=== PATIENT | female | born 1990 | race Caucasian/White ===

== ENCOUNTER 2021-02-11 13:19 | Emergency (ER) | payer BC, SELFPAY ==
[2021-02-11 15:06] VITALS: BP 149/95; PULSE 79; RESP 16; TEMP 36.6; O2SAT 97; BMI 20.5
[2021-02-11 15:14] LABS: UTC Strep Screen (Rapid) Negative (Negative)
--- NOTE | 2021-02-11 15:51 | HMH.EDUTC ---
[facility] [place] Impression: Sinusitis Qualifiers: Sinusitis location: unspecified location Chronicity: unspecified Qualified Code(s): J32.9 - Chronic sinusitis, unspecified Disposition: Home, Self-Care Condition on Discharge: Good Instructions: Sinusitis, DI for Sinusitis, Azithromycin Additional Instructions: *Monitor Temp, Over the counter Motrin or Tylenol as directed/as needed Tylenol every 4 hours and Motrin every 6 hours (as long as your family doctor has told you that you can take it) for fever or pain. and straight to ER if unable to lower temp less than 101.0 after medication given *Warm salt water gargles may help to soothe the throat *Throat Lozenges *Warm fluids like tea with honey may help to soothe the throat *Sleep elevated *Humidifier/Vaporizer Take medication as prescribed Your throat swab was sent for culture. Those results are typically sent to your primary care. Be sure to follow up in 2-3 days with your family doctor/primary care physician if no improvement so they can review those result and treat if necessary. If you don?t have a primary care doctor, I recommend you get one but in the mean time, you will have to return to a walk in clinic Follow up IMMEDIATELY for new or worsening symptoms or no Noticeable improvement over the next 48-72 hours. 911 for difficulty breathing or swallowing Prescriptions: Fluticasone Propionate [Flonase 50mcg nasal spray 16gm] 1 spr NS DAILY #1 each Transmission Status: Pending to [facility] # methylPREDNISolone [Medrol 4mg tab] 4 mg PO DIRECTED #21 tab Transmission Status: Pending to [facility] # Azithromycin [Z-Lele 250mg Tab] 250 mg PO DIRECTED #6 tab Transmission Status: Pending to [facility] # Referrals: Lina Galvan [Primary Care Provider] - As needed Time of Disposition: 16:04 Medical Decision Making - Shawn Inquiry Pt receiving controlled substance: No Shawn was queried for this patient: No Vital Signs: 02/11/21 15:06 Temperature 97.9 F Temperature Source Oral Pulse Rate [Right Radial] 79 Respiratory Rate 16 Blood Pressure [Right Arm] 149/95 H Blood Pressure Mean [Right Arm] 113 Blood Pressure Source [Right Arm] Automatic Cuff Blood Pressure Position [Right Arm] Sitting 02 Sat by Pulse Oximetry 97 Oxygen Delivery Method Room Air - Lab Data Lab Results 02/11/21 15:06: Strep Scn Rapid Clinic Negative Orders (Tests/Meds): ORDERS Category Date Time Status Strep Screen Confirmation Stat Micro 02/11/21 15:06 Received Medical Decision Narrative: Patient denies states that she is currently coming off her period [facility] [place] - General Stated complaint: sore throat, congestion Time Seen by Provider: 02/11/21 15:51 Mode of Arrival: Ambulatory Source of Information: Patient Description of Symptoms (Recalled from Triage Doc. by RN): cough,sinus congestion,sore throat HEENT Symptoms (Recalled from RN notes): Yes Resp Symptoms (Recalled from RN notes): Yes Skin Symptoms (Recalled from RN notes): No MS Symptoms (Recalled from RN notes): No Functional Status (Recalled from RN notes): . - History of Present Illness Provider Complaint: Patient states that she has been having sinus pain and pressure for well over a week States that she also has had cough and sore throat States that she has been taking over the counter Medication but it hasnt helped much so today she came in when she was still having the sinus pressure - Related Data Previous Rx's Medication Instructions Recorded Azithromycin [Z-Lele 250mg Tab] 250 mg PO DIRECTED #6 tab 02/11/21 Fluticasone Propionate [Flonase 1 spr NS DAILY #1 each 02/11/21 50mcg nasal spray 16gm] methylPREDNISolone [Medrol 4mg 4 mg PO DIRECTED #21 tab 02/11/21 tab] Allergies Allergy/AdvReac Type Severity Reaction Status Date / Time Penicillins Allergy Verified 02/11/21 15:10 - Worke
[2021-02-11 16:39] VITALS: BP 151/99; PULSE 78; RESP 19; TEMP 36.8; O2SAT 99
== END 2021-02-11 16:43 | disposition home or self-care (01) ==
PROVIDERS: Emergency Provider Nurse Practitioner; PCP Nurse Practitioner Family
DX: J32.9 Chronic sinusitis, unspecified (principal)
CPT/HCPCS: 87880; 99202; G0463

== ENCOUNTER 2021-08-28 08:00 | Emergency (ER) | payer BC, SELFPAY ==
[2021-08-28 08:09] VITALS: BP 135/96; PULSE 84; RESP 17; TEMP 36.9; O2SAT 98; BMI 22.8
[2021-08-28 08:23] LABS: Strep Scrn Group A (Rapid) Negative (Negative)
[2021-08-28 08:26] LABS: UTC Influenza A Antigen Negative (Negative); UTC Influenza B Antigen Negative (Negative)
--- NOTE | 2021-08-28 08:28 | HMH.EDUTC ---
[facility] [place]position Clinical Impression: Gastroenteritis Diarrhea Qualifiers: Diarrhea type: unspecified type Qualified Code(s): R19.7 - Diarrhea, unspecified Disposition: Home, Self-Care Condition on Discharge: Good Instructions: Viral Gastroenteritis, DI for Viral Gastroenteritis -- Adult, Ondansetron, Ondansetron Injection Additional Instructions: Drink plenty of fluids. Take tylenol for pain or fever. Take the medications as directed. Follow up with your regular doctor. GO TO THE ER FOR ANY WORSENING SYMPTOMS Return a stool sample to the laboratory here if your diarrhea continues until tomorrow. Prescriptions: Ondansetron [Zofran 4mg ODT] 4 mg PO Q8HP PRN #20 tab PRN Reason: Nausea Transmission Status: Received by [facility] #[id number] Referrals: Lina Galvan [Primary Care Provider] - Forms: Work/School Release Time of Disposition: 09:49 Medical Decision Making - Medical Records Medical records reviewed: No: I reviewed the patient's medical records. - Shawn Inquiry Pt receiving controlled substance: No Vital Signs: 08/28/21 08:09 08/28/21 10:43 Temperature 98.5 F 98.5 F Temperature Source Oral Pulse Rate 84 Pulse Rate [Left Radial] 84 Respiratory Rate 17 17 Blood Pressure 135/96 H Blood Pressure [Right Arm] 135/96 H Blood Pressure Mean [Right Arm] 109 02 Sat by Pulse Oximetry 98 - Lab Data Lab results reviewed: Yes: I reviewed the patient's lab results. Lab Results 08/28/21 08:10: Group A Strep Rapid Negative 08/28/21 08:13: Influenza Type A Ag Negative, Influenza Type B Ag Negative 08/28/21 08:39: WBC 5.4, RBC 4.60, Hgb 10.0 L, Hct 30.5 L, MCV 66.3 L, MCH 21.8 L, MCHC 32.9, RDW 18.1 H, Plt Count 178, MPV 7.1 L, Neut % (Auto) 67.7, Lymph % (Auto) 20.2, Garvin % (Auto) 6.9, Eos % (Auto) 4.1, Baso % (Auto) 1.1, Neut # (Auto) 3.6, Lymph # (Auto) 1.1, Garvin # (Auto) 0.4, Eos # (Auto) 0.2, Baso # (Auto) 0.1 08/28/21 08:39: Sodium 136, Potassium 3.6, Chloride 105, Carbon Dioxide 27, Anion Gap 7.6, BUN 10, Creatinine 0.60, Estimated Creat Clear 115, Estimated GFR 117, Est GFR ( Amer) 142, Glucose 103 H, Calcium 8.5, Total Bilirubin 1.2, AST 72 H, ALT 17, Alkaline Phosphatase 46, Total Protein 6.3, Albumin 3.9, Globulin 2.4, Albumin/Globulin Ratio 1.6, Amylase 69, Lipase 58 Result diagrams: 08/28/21 08:39 08/28/21 08:39 Orders (Tests/Meds): ED MEDICATIONS Discontinued Medications Generic Name Dose Route Start Last Admin Trade Name Freq PRN Reason Stop Dose Admin Sodium Chloride 1,000 mls @ 999 mls/hr 08/28/21 09:45 08/28/21 09:40 Sod Chlor 0.9% 1000ml Bag IV 08/28/21 10:45 999 mls/hr .Q1H1M TAYLOR Administration Ondansetron HCl 4 mg 08/28/21 09:34 08/28/21 09:40 Ondansetron 4mg/2ml Vial IV 08/28/21 09:35 4 mg ONCE ONE Administration ORDERS Category Date Time Status Strep Screen Confirmation Stat Micro 08/28/21 08:10 Received Medical Decision Narrative: She refused a covid-19 swab. [facility] [place] HPI - General Stated complaint: stomach ache, vomiting, diarrhea since 08/23 Time Seen by Provider: 08/28/21 08:28 Source of Information: Patient Description of Symptoms (Recalled from Triage Doc. by RN): patient comes in today with complaints of vomitting and diarrhea that began 08/24/21. HEENT Symptoms (Recalled from RN notes): No Resp Symptoms (Recalled from RN notes): No Skin Symptoms (Recalled from RN notes): No MS Symptoms (Recalled from RN notes): No Functional Status (Recalled from RN notes): wnl - History of Present Illness Provider Complaint: She states that for the past 5 days she has had n/v/d and abdominal cramping. She denies any cough or congestion. She has had chilling, but no documented fever. She denies significant sore throat. - Related Data Previous Rx's Medication Instructions Recorded Azithromycin [Z-Lele 250mg Tab] 250 mg PO DIRECTED #6 tab 02/11/21 Fluticasone Propionate [Flonase 1 spr
[2021-08-28 09:22] LABS: Basophils # 0.1 K/mm3 (0-0.2); Basophils % 1.1 % (0.1-2.0); Eosinophils # 0.2 K/mm3 (0.0-0.4); Eosinophils % 4.1 % (0.1-12.0); Hematocrit 30.5 % (37.0-47.0); Lymphocytes # 1.1 K/mm3 (0.7-4.5); Lymphocytes % 20.2 % (10-50); Mean Corpuscular HGB Conc 32.9 g/dL (31.8-35.4); Mean Corpuscular Hemoglobin 21.8 pg (27.0-31.2); Mean Corpuscular Volume 66.3 fl (81-99); Mean Platelet Volume 7.1 fl (7.4-10.4); Monocytes # 0.4 K/mm3 (0.1-1.0); Monocytes % 6.9 % (1.7-9.3); Neutrophils # 3.6 K/mm3 (1.8-7.8); Neutrophils % 67.7 % (37.0-80.0); Platelet Count 178 K/mm3 (142-424); Red Cell Distribution Width 18.1 % (11.5-17.5); White Blood Count 5.4 K/mm3 (4.8-10.8)
[2021-08-28 09:24] LABS: Chloride 105 mmol/L (98-107); Potassium 3.6 mmoL/L (3.5-5.1); Sodium 136 mmol/L (136-145)
[2021-08-28 09:26] LABS: Amylase 69 U/L (30-110); Blood Urea Nitrogen 10 mg/dl (7-17); Creatinine Clearance Estimated 115 mL/min (50-200); Estimated Glomerular Filt Rate 117 ml/min (>60); GFR (African American) 142 ML/MIN (>60)
[2021-08-28 09:27] LABS: Alanine Aminotransferase 17 U/L (12-78); Albumin Level 3.9 g/dl (3.5-5.0); Albumin/Globulin Ratio 1.6 (1.1-1.8); Alkaline Phosphatase 46 U/L (38-126); Anion Gap 7.6 mEq/L (5-15); Aspartate Amino Transferase 72 U/L (14-36); Bilirubin,Total 1.2 mg/dl (0.2-1.3); Calcium 8.5 mg/dl (8.4-10.2); Carbon Dioxide 27 mmol/L (22.0-30.0); Globulin 2.4 g/dL (1.3-3.2); Glucose 103 mg/dl (74-100); Lipase 58 U/L (23-300); Total Protein,Serum 6.3 g/dl (6.3-8.2)
[2021-08-28 10:43] VITALS: BP 135/96; PULSE 84; RESP 17; TEMP 36.9
== END 2021-08-28 10:49 | disposition home or self-care (01) ==
PROVIDERS: Emergency Provider Nurse Practitioner Family; PCP Nurse Practitioner Family
DX: K52.9 Noninfective gastroenteritis and colitis, unspecified (principal)
CPT/HCPCS: 80053; 82150; 83690; 85025; 87430; 87804; 96374; 99212; G0463; J2405

== ENCOUNTER 2024-10-19 13:34 | Outpatient (CLI) | payer BC, SELFPAY ==
--- OUTSIDE RECORDS SUMMARY | 2024-10-19 13:36 | XMS_ITS | Clinical Summary ---
Author Organization [facility] Address [address] [place] [address] Care Team Providers Care Earth Science Teacher Name Role Phone BruceMaricruz Lydia PUENTE Primary Care Provider [phone] Allergies Active Allergy Reactions Criticality Noted Date Comments Penicillins Other - please docum ent in the comment field,Unknown - Patient states they do not know rxn details Low 11/04/2011 Penicillins Medications * This document contains information received from the source organization and may not represent a complete record from that organization. cetirizine (ZyrTEC) 10 MG tabletIndication s:Allergic rhinitis, unspecified seasonality, unspecified trigger Take 1 tablet (10 mg total) by mouth 1 (one) time each day. 90 tablet 3 05/20/2022 Active Active Problems Problem Noted Date Diagnosed Date Encounter for gynecological examination without abnormal finding 05/22/2021 Assessment & Plan (05/22/2021 1:27 PM EST): - pap today - normal exam - declines contraception - RTC as needed Encounter for dental examination 02/19/2021 Cervical lymphadenopathy 05/21/2018 Dysmenorrhea 07/14/2017 Low back pain 03/25/2016 Low grade squamous intraepit helial lesion on cytologic smear of cervix (LGSIL) 06/05/2014 Allergic rhinitis 11/23/2013 Psoriasis 05/24/2013 Headache 04/15/2013 Encounters * This document contains information received from the source organization and may not represent a complete record from that organization. Date Type Department Care Team Description 08/05/2024 Results Follow-Up [facility] [address] [place] [address] Maricruz Barrera APRN 08/05/2024 Travel 08/05/2024 Orders Only [facility] [address] [place] [address] Elzbieta Werner LPN Encounter for Titer Results (Primary Dx) 07/27/2024 8:00 AM EDT Office Visit [facility] [address] [place] [address] Maricruz Barrera, KILN [employer]W TENDER Routine general medical examination at a health care facility (Primary Dx); Screening-pulmonary TB; History of anemia; Menorrhagia with regular cycle; Vaccine counseling 07/27/2024 Results Follow-Up [facility] [address] [place] [address] Maricruz Barrera APRN 07/27/2024 Travel 07/26/2024 Travel from Last 3 Months Immunizations Immunization Administration Dates Next Due HPV, Quadrivalent 03/23/2009 Hep A, Unspecified 01/30/2018 Hep B, adult 03/20/2003,10/13/2002,09/15/2002 Influenza, Unspecified 01/03/2020,2018,01/15/2018,2016,01/06/2016,01/02/2015,01/10/2014,1 ,01/08/2012 Influenza, injectable, quadr ivalent, preservative free 12/26/2022,01/08/2022,02/20/2021 Influenza, seasonal, injecta ble, preservative free 02/25/2024 MMR 09/15/2002,01/23/1992 PPD Skin Test (TB Skin Test) 01/10/2014,10/06/19 13 Tdap 07/27/2024,10/08/2012 Family History Medical History Relation Name Comments Allergy (severe) Mother Asthma Mother Hypertension Mother Conversions - Other Other 1 malignan t neoplasm of ovary Ovarian cancer Other 2 Cardiac disorder Sister Relation Name Status Comments Mother Other 1 Other 2 Sister Social History Tobacco Use Types Packs/Day Years Used Date Smoking Tobacco: Never Tobacco Cessation:Counseling Given: Not Answered Alcohol Use Standard Drinks/Week Comments Yes 0 (1 standard drink = 0.6 oz pure alcohol) Alcoholic Drinks/day: Occasional alcohol use Humiliation, Afraid, Rape, and Kick questionnair e Answer Date Recorded Within the last year, have y ou been afraid of your partner or ex-partner? No 07/26/2024 Within the last year, have y ou been humiliated or emotionally abused in other ways by your partner or ex-partner? No Within the last year, have y ou been kicked, hit, slapped, or otherwise physically hurt by your partner or ex-partner? No 07/26/2024 Within the last year, have y ou been raped or forced to have any kind of sexual activity by your partner or ex-partner? No 07/26/2024 PHQ-2 Answer Date Recorded Patient Health Questionnaire-2 Score 0 07/27/2024 Hunger Vital Sign Answer Date Recorded Within the past 12 months, y ou worried that your food would run out before you got the money to buy more. Never true 07/27/19 25 Within the past 12 months, t he food you bought just didn't last and you didn't have money to get more. Never true 07/26/2024 PRAPARE - Transportation Answer Date Re corded In the past 12 months, has l ack of transportation kept you from medical appointments or from getting medications? No 08/2024 In the past 12 months, has l ack of transportation kept you from meetings, work, or from getting things needed for daily living? No 07/26/2024 PHQ-9 Answer Date Recorded Patient Health Questionnaire-9 Score 0 07/27/2024 Housing Stability Vital Sign Answer Christopher e Recorded In the last 12 months, was t here a time when you were not able to pay the mortgage or rent on time? No 07/26/2024 Number of Times Moved in the Last Year Not on fi le 07/26/2024 At any time in the past 12 m [facility], were you homeless or living in a fci (including now)? No 07/26/2024 Utilities Answer Date Recorded In the past 12 months has th e [employer], gas, oil, or water company threatened to shut off services in your home? No 07/26/2024 PHQ-2A Answer Date Recorded Patient Health Questionnaire-2 Score 0 05/20/2022 Comments No Sex and Gender Information Value Date Recorded Sex Assigned at Female 01/23/2021 11:25 AM EDT Legal Sex Female 8:31 PM EDT Gender Identity Female 01/23/2021 11:25 AM EDT Sexual Orientation Not on file Last Filed Vital Signs Vital Sign Reading Time Taken Comments Blood Pressure 116/70 07/27/2024 7:55 AM EDT Pulse 77 07/27/2024 7:55 AM EDT Temperature - - Respiratory Rate 18 07/27/2024 7:55 AM EDT Oxygen Saturation 98% 07/27/2024 7:55 AM EDT Inhaled Oxygen Concentration - - Weight 59.4 kg (130 lb 15.3 oz) 07/27/2024 7:55 AM EDT Height 154.9 cm (5' 1 ) 07/27/2024 7:55 AM EDT Body Mass Index 24.74 07/27/2024 7:55 AM EDT Plan of Treatment Upcoming Encounters Date Type Department Care Team (Late st Contact Info) Description 11/02/2024 1:40 PM EDT Office Visit [facility] [address] [place] [address] Maricruz Barrera, CINDI [address] [place] [address] 01/03/2025 9:00 AM EDT Office Visit [facility] [address] [place] [address] [address] [place] [id number] Varinder Youssef [facility] [place] [address] Health Maintenance Due Date Last Done Comments [facility]-HIV Screening 1990 [facility]-Hepatitis C Screening 1990 [facility]-Infant/Child/Adol SDOH Screenings 1990 [facility]-Varicella Vaccines (1 of 2 - 13+ 2-dose series) 10/15/2003 HPV Vaccines (2 - 3-dose series) 04/20/2009 03/23/2009 [id number] Vaccine (3 - season) 2023 12/07/2020, 11/09/2020 [facility]-Pap Smear 05/22/2024 05/22/2021, 07/22, 06/27/2015, Additional history exists [facility]-Influenza Vaccine (#1) 11/21/202402/24, 12/26/2022, 01/08/2022, Additional history exists Dental Oral Exam 12/21/2024 06/20/2024, , 06/15/2023, Additional history exists Dental Prophylaxis 12/21/2024 06/20/2024, 0 12/21/2023, 06/15/2023, Additional history exists Dental X-Ray: Bitewings 12/21/2024 12/21/19 24, 12/01/2022, 11/21/2021, Additional history exists [facility]- SDOH Screenings 01/26/2025 [facility]-Adult SDOH Screenings 01/26/2025 07/26/2024 [facility]-Depression Screening 07/27/2025 07/27/2024, 05/0 09/2024 Dental X-Ray: Full Mouth 12/02/2025 12/01/2022 [facility]-Cervical Cancer Screening 05/22/2026 [facility]-HPV/Cotest 05/22/2026 05/22/2021, 07/22, 06/27/2015, Additional history exists [facility]-DTaP,Tdap,and Td Vaccines (3 - Td or Tdap) 07/27/2034 07/27/2024, 10/08/2012 [facility]-Zoster Vaccines (1 of 2) 2040 [facility]-Hepatitis B Vaccines Completed 003, 10/13/2002, 09/15/2002 [facility]-Hepatitis A Vaccines Aged Out 01/30/2018 No longer eligible based on patient's age to complete this topic [facility]-HIB Vaccines Aged Out No longer e ligible based on patient's age to complete this topic [facility]-IPV Vaccines Aged Out No longer e ligible based on patient's age to complete this topic [facility]-Pneumococcal Vaccine: Pediatrics (0 to 5 Years) and At-Risk Patients (6 to 49 Years) Aged Out No longer eligible based on patient's age to complete this topic [facility]-Rotavirus Vaccines Aged Out No lo nger eligible based on patient's age to complete this topic Procedures Procedure Name Priority Date/Time Associated Diagnosis Comments VARICELLA ZOSTER ANTIBODY IGG Routine 08/05/2024 9:24 AM EDT Encounter for Titer Results CBC W/O DIFFERENTIAL Routine 07/27/2024 8:34 AM EDT [facility] FERRITIN, SERUM Routine 07/27/2024 8:34 AM EDT History of anemia Menorrhagia with regular cycle IRON & TOTAL IRON BINDING CAPACITY, PLASMA (INCLUDES TRANSFERRIN) Routine 07/27/2024 8:34 AM EDT History of anemia Menorrhagia with regular cycle TSH Routine 07/27/2024 8:34 AM EDT Routine [facility] LIPID PROFILE, PLASMA Routine 07/27/2024 8:34 AM EDT Routine general medical examination at [facility] HEMOGLOBIN A1C Routine 07/27/2024 8:34 AM EDT Routine general medical [facility] COMPREHENSIVE METABOLIC PANEL, PLASMA Routine 07/27/2024 8:34 AM EDT Routine [facility] QUANTIFERON TB GOLD PLUS Routine 07/27/2024 8:34 AM EDT Screening-pulmonary TB PROPHYLAXIS - ADULT Routine 06/20/2024 9 :00 AM EDT Encounter for dental examination PERIODIC ORAL EVALUATION - ESTABLISHED PATIENT Routine 06/20/2024 9:00 AM EDT Encounter for dental examination BITEWINGS - 4 RADIOGRAPHIC IMAGES Routine 12/21/2023 9:00 AM EDT Encounter for dental examination PANORAMIC RADIOGRAPHIC IMAGE Routine 12/01/2022 9:00 AM EDT Encounter for dental examination PAP TEST - CYTOLOGY Routine 05/22/2021 1 :18 PM EST Encounter for gynecological examination without abnormal finding from Last 3 Months or Most Recently Relevant to Health Maintenance Results * (ABNORMAL) Varicella zoster antibody, IgG (08/05/2024 9:24 AM EDT) Pathologist [facility] Varicella Zoster Antibody IgG Positive(A ) Negative 08/05/2024 12:26 PM EDT [facility] Comment: Varicella-zoster IgG Result Interpretation: Negative: No IgG antibody specific to the varicella-zoster virus detected. Patient is presumed not to have had a previous exposure to varicella-zoster through infection or vaccination. Equivocal: Serologic status cannot be determined. Repeat testing in 10-14 days may be helpful. Positive: IgG antibody specific to varicella-zoster detected. This may indicate the patient was exposed to varicella-zoster through infection or vaccination. Blood Venous blood specimen / Unknown Venipuncture / Unknown 08/05/2024 9:24 AM EDT 08/05/2024 9:24 AM EDT Maricruz Barrera APRN LAB BLOOD ORDERABLES Final Resu lt [facility] [address] [place] [address] * Iron & Total Iron Binding Capacity, Plasma (Includes Transferrin) (07/27/2024 8:34 AM EDT) Pathologist [facility] Iron, Plasma 64 30 - 160 ug/dL 07/27/2024 1:54 PM EDT [facility] Transferrin, Plasma 229 200 - 360 mg/dL 07/27/2024 1:54 PM EDT [facility] Total Iron Binding Capacity, Plasma 286 240 - 450 ug/mL 07/27/2024 1:54 PM EDT [facility] Transferrin Saturation 22 14 - 50 % 07/27/2024 1:54 PM EDT [facility] Blood Venous blood specimen / Unknown Venipuncture / Unknown 07/27/2024 8:34 AM EDT 07/27/2024 8:35 AM EDT Maricruz Barrera APRN LAB BLOOD ORDERABLES Final Resu lt Performing Organization Address [facility]/ZIP Co de Phone Number [facility] [address] [place] [address] * Quantiferon TB Gold (07/27/2024 8:34 AM EDT) [facility] Quantiferon TB Gold Plus Result Negative Negative 07/28/2024 5:12 PM EDT [facility] TB Nill Value 0.0388 IU/mL 07/28/2024 5:12 PM EDT [facility] TB Antigen 1 0.0333 IU/mL 07/28/2024 5:12 PM EDT [facility] TB Antigen 2 0.019 IU/mL 07/28/2024 5:12 PM EDT [facility] TB Mitogen 5.8212 IU/mL 07/28/2024 5:12 PM EDT [facility] Blood Venous blood specimen / Unknown Venipuncture / Unknown 07/27/2024 8:34 AM EDT 07/27/2024 8:35 AM EDT Narrative [facility] - 07/28/2024 5:12 PM EDT Responses to the Mitogen positive control and occasionally to TB antigen can be above the assay range. For calculation purposes: IFN-gamma values > 10 IU/mL are handled as 10 IU/mL. us Maricruz Barrera APRN LAB BLOOD ORDERABLES Final Resu Performing Organization Address [facility] Co de Phone Number [facility] [address] [place] [address] * (ABNORMAL) CBC W/O Differential (07/27/2024 8:34 AM EDT) [facility] WBC Count 7.16 3.70 - 10.30 10*3/uL LAB HEMATOLOGY METHOD 07/27/2024 1:45 PM EDT [facility] RBC Count 5.37(H) 3.90 - 5.20 10*6/uL LAB HEMATOLOGY METHOD 07/27/2024 1:45 PM EDT [facility] HGB 10.8(L) 11.2 - 15.7 g/dL LAB HEMATOLOGY METHOD 07/27/2024 1:45 PM EDT [facility] HCT 36.1 34.0 - 45.0 % LAB HEMATOLOGY METHOD 07/27/2024 1:45 PM EDT [facility] Platelet Count 254 155 - 369 10*3/uL LAB HEMATOLOGY METHOD 07/27/2024 1:45 PM EDT [facility] MCV 67(L) 79 - 98 fL LAB HEMATOLOGY METHOD 07/27/2024 1:45 PM EDT [facility] MCH 20.1(L) 26.0 - 32.0 pg LAB HEMATOLOGY METHOD 07/27/2024 1:45 PM EDT [facility] MCHC 29.9(L) 30.7 - 35.5 g/dL LAB HEMATOLOGY METHOD 07/27/2024 1:45 PM EDT [facility] RDW 16.5(H) 11.5 - 14.5 % LAB HEMATOLOGY METHOD 07/27/2024 1:45 PM EDT [facility] MPV LAB HEMATOLOGY METHOD 07/27/2024 1:45 PM EDT [facility] Comment:Not Measured nRBC 0.0 <=0.0 per 100 WBCs LAB HEMATOLOGY METHOD 07/27/2024 1:45 PM EDT [facility] Blood Venous blood specimen / Unknown Venipuncture / Unknown 07/27/2024 8:34 AM EDT 07/27/2024 8:35 AM EDT us Maricruz Barrera APRN LAB BLOOD ORDERABLES Final Resu lt [facility] [address] [place] [address] * Thyroid Stimulating Hormone, Plasma (07/27/2024 8:34 AM EDT) Thyroid Stimulating Hormone, Plasma 1.47 0.40 - 4.20 uIU/mL 07/27/2024 1:54 PM EDT [facility] Blood Venous blood specimen / Unknown Venipuncture / Unknown 07/27/2024 8:34 AM EDT 07/27/2024 8:35 AM EDT Narrative [facility] - 07/27/2024 1:54 PM EDT Trimester Specific Ranges TSH ( IU/mL) 1st Trimester 0.1 - 3.0 2nd Trimester 0.19 - 4.06 3rd Trimester 0.3 - 3.7 Result [facility] Maricruz Barrera KILN [employer]URE [employer]W TENDER LAB BLOOD ORDERABLES Final Resu lt Performing Organization Address City/[facility]/ZIP Co de Phone Number [facility] [address] [place] [address] * Hemoglobin A1c (07/27/2024 8:34 AM EDT) Hemoglobin A1c 4.5 <5.7 % 07/27/2024 2:31 PM EDT [facility] Blood Venous blood specimen / Unknown Venipuncture / Unknown 07/27/2024 8:34 AM EDT 07/27/2024 8:35 AM EDT Narrative [facility] - 07/27/2024 2:31 PM EDT HA1C Interpretive Data: Diagnosis of Diabetes: Diabetic > or = 6.5% Pre-diabetic 5.7 to 6.4% Non-diabetic < or = 5.6% Glycemic Targets for Type I and Type II Diabetics: Non- Adults <7.0% Adults <6.0% Children and Adolescents <7.5% Source: [place] [employer]. Standards of medical care in diabetes,2017. Diabetes Care.2017:40 (suppl 1):S1-S135. Result [facility] Maricruz Barrera KIL[employer]ER LAB BLOOD ORDERABLES Final Resu lt Performing Organization Address City/[facility] Co de Phone Number [facility] [address] [place] [address] * (ABNORMAL) Ferritin, Serum (07/27/2024 8:34 AM EDT) Ferritin, Serum 204(H) 13 - 150 ng/mL 07/27/2024 1:59 PM EDT [facility] Blood Venous blood specimen / Unknown Venipuncture / Unknown 07/27/2024 8:34 AM EDT 07/27/2024 8:35 AM EDT Maricruz Lydia [place] [employer] LAB BLOOD ORDERABLES Final Resu lt [facility] [address] [place] [id number] * (ABNORMAL) Lipid Profile, Plasma (07/27/2024 8:34 AM EDT) Cholesterol, Plasma 139 <200 mg/dL 07/27/2024 1:54 PM EDT [facility] Comment: Cholesterol Reference Range (age >17 years): Desirable <200 mg/dL Borderline 200 to 239 mg/dL Undesirable >239 mg/dL HDL 49(L) >=50 mg/dL 07/27/2024 1:54 PM EDT [facility] Comment: HDL Cholesterol Reference Ranges (age >17 years): Female, acceptable > or = 50 mg/dL Male, acceptable > or = 40 mg/dL Triglycerides, Plasma 75 <150 mg/dL 07/27/2024 1:54 PM EDT [facility] Comment: Triglyceride Reference Range (age >17 years): Desirable: <150 mg/dL Borderline high: 150 to 199 mg/dL High: 200 to 499 mg/dL Very high: >499 mg/dL Increased risk of pancreatitis: >1000 mg/dL Cholesterol/HDL Ratio 3 07/27/2024 1:54 PM EDT [facility] LDL, Calculated 75 <100 mg/dL 1:54 PM EDT [facility] Comment: LDL Cholesterol Reference Range (age >17 years): Optimal: <100 mg/dL Near or above optimal: 100 - 129 mg/dL Borderline high: 130 - 159 mg/dL High: 160 - 189 mg/dL Very high: >189 mg/dL LDL Cholesterol Reference Range (age <18 years): Desirable: <110 mg/dL Borderline: 110 - 129 mg/dL Undesirable: >130 mg/dL LDL Cholesterol is calculated using the Lynn/NIH equation. Fasting greater than or equal to 12 hours? Yes 07/27/2024 1:54 PM EDT [facility] Blood Venous blood specimen / Unknown Venipuncture / Unknown 07/27/2024 8:34 AM EDT 07/27/2024 8:35 AM EDT us Maricruz Barrera APRN LAB BLOOD ORDERABLES Final Resu lt [facility] [address] [place] [address] * Comprehensive Metabolic Panel, Plasma (07/27/2024 8:34 AM EDT) Glucose, Plasma 95 74 - 99 mg/dL 07/27/2024 1:54 PM EDT [facility] BUN, Plasma 18 7 - 21 mg/dL 07/27/2024 1:54 PM EDT [facility] Creatinine, Plasma 0.70 0.60 - 1.10 mg/dL 07/27/2024 1:54 PM EDT [facility] BUN/Creatinine Ratio 26 07/27/2024 1:54 PM EDT [facility] Sodium, Plasma 140 136 - 145 mmol/L 07/27/2024 1:54 PM EDT [facility] Potassium, Plasma 4.3 3.6 - 4.9 mmol/L 07/27/2024 1:54 PM EDT [facility] Chloride, Plasma 107 97 - 107 mmol/L 07/27/2024 1:54 PM EDT [facility] CO2, Plasma 25 22 - 29 mmol/L 07/27/2024 1:54 PM EDT [facility] Anion Gap 8 6 - 16 mmol/L 07/27/2024 1:54 PM EDT [facility] Total Calcium, Plasma 9.1 8.9 - 10.2 mg/dL 07/27/2024 1:54 PM EDT [facility] Total Protein 6.8 6.3 - 7.9 g/dL 07/27/2024 1:54 PM EDT [facility] Albumin, Plasma 4.4 3.5 - 5.2 g/dL 07/27/2024 1:54 PM EDT [facility] AST, Plasma 24 10 - 35 U/L 07/27/2024 1:54 PM EDT [facility] ALT, Plasma 16 10 - 35 U/L 07/27/2024 1:54 PM EDT [facility] Alkaline Phosphatase, Plasma 56 35 - 104 U/L 07/27/2024 1:54 PM EDT [facility] Total Bilirubin, Plasma 0.8 0.2 - 1.1 mg/dL 07/27/2024 1:54 PM EDT [facility] eGFRcr 117.3 mL/min/1.7 3m*2 07/27/2024 1:54 PM EDT [facility] Comment:Reported eGFRcr in m L/min/1.73m2 is based the CKD-EPI 2020 equation that does not use a race coefficient. Blood Venous blood specimen / Unknown Venipuncture / Unknown 07/27/2024 8:34 AM EDT 07/27/2024 8:35 AM EDT us Maricruz Barrera APRN LAB BLOOD ORDERABLES Final Resu lt [facility] [address] [place] [address] * Pap Smear (05/22/2021 1:18 PM EST) Case Report Cytology Case: [id number] Authorizing Provider: Leydi Jimenez MD Collected: 05/22/2021 1318 Ordering Location: Obstetrics & Gynecology Received: 05/23/2021 0839 First Screen: ALEJO Ceballos Rescreen: ALEJO Gaming Specimen: ThinPrep Pap Test, Liquid-Based Cervical/Vaginal, CERVICAL/VAGINAL 05/29/2021 12:20 PM EST [facility] Interpretation NEGATIVE FOR INTRAEPITHELIAL LESION OR MALIGNANCY 05/29/2021 12:20 PM EST [facility] at 1220 EST Specimen Adequacy Satisfactory for evaluation; endocervical/arenas sformation zone component present. Slide scanned and imaged by [employer] System with manual review of all selected neri. 05/29/2021 12:20 PM EST [facility] Cervical cytology is a screening test primarily for squamous cancers and precursors and has associated false negative and positive results. New technologies such as liquid based sampling may decrease but will not eliminate all false negative results. Regular screening and follow-up of unexplained clinical signs and symptoms are recommended to minimize false negative results. Please see the ASCCP website (www.asccp.org)fo r followup recommendations. If HPV testing was requested, correlation with the results is suggested (please call Microbiology at [phone] for results). 05/29/2021 12:20 PM EST [facility] Menstrual Status Cyclic 05/30/19 12:20 PM EST [facility] History of Hysterectomy Not Applicable 05/29/2021 12:20 PM EST [facility] Contraceptive History Not Applicable 05/29/2021 12:20 PM EST [facility] Screening Type Routine Screen 2021 12:20 PM EST [facility] High Risk? No 05/29/2021 12:20 PM EST [facility] HPV Testing Requested? Request HPV Testing Regardless of Pap Test Findings 05/29/2021 12:20 PM EST [facility] Previous Cancer History No 05/29/2021 12:20 PM EST [facility] Clinical Information Z01.419 - Encounter for gynecological examination without abnormal finding [ICD-10-CM] 05/29/2021 12:20 PM EST [facility] Last Menstrual Period 04/24/2021 05/29/2021 12:20 PM EST [facility] Swab Vaginal and cervical cytologic material / Unknown Non-blood Collection / Unknown 05/22/2021 1:18 PM EST 05/23/2021 8:39 AM EST Leydi Jimenez MD LAB CYTOLOGY ORDERABLES Final Result [facility] [address] [place] [address] from Last 3 Months or Most Recently Relevant to Health Maintenance Insurance [facility] Care Teams Earth Science Teacher Relationship Specialty Start Date End Date Maricruz Barrera APRN [address] [place] [address] PCP - General Family Medicine 05/20/22
--- OUTSIDE RECORDS SUMMARY | 2024-10-19 13:36 | XMS_ITS | Encounter Summary ---
Author Organization [facility] Address [address] [place] [address] Care Team Providers Care Internet Marketing Specialist Name Role Phone Maricruz Barrera APRN Primary Care Provider [phone] Encounter Details Date Type Department Care Team (Late st Contact Info) Description 07/27/2024 Results Follow-Up [facility] [address] [place] [address] Maricruz Barrera APRN [address] [place] [address] Social History Tobacco Use Types Packs/Day Years Used Date Smoking Tobacco: Never Alcohol Use Standard Drinks/Week Comments Yes 0 [...] money to buy more. Never true 07/27/19 Within the past 12 months, t he [...] any time in the past 12 m [facility], were you homeless or living in a retirement (including now)? No 07/26/2024 Utilities Answer Date Recorded In the past 12 months has th e electric, gas, oil, or water company threatened to shut off services in your home? No 07/26/2024 PHQ-2A Answer Date Recorded Patient Health Questionnaire-2 Score 0 05/20/2022 Comments No Sex and Gender Information Value Date Recorded Sex Assigned at Female 01/23/2021 11:25 AM EDT Legal Sex Female 8:31 PM EDT Gender Identity Female 01/23/2021 11:25 AM EDT Sexual Orientation Not on file documented as of this encounter Functional Status * Over the past 2 weeks, how often have you been bothered by any of the following problems? Question Answer Date of Assessment Author Little interest or pleasure in doing things Not at all 07/27/2024 8:01 AM Madison Bach Feeling down, depressed, or hopeless Not at all 07/27/2024 8:01 AM Madison Bach Patient Health Questionnaire -2 Score 0 07/27/2024 8:01 AM Madison Bach * Question Answer Date of Assessment Author Trouble falling or staying a sleep, or sleeping too much Not at all 07/27/2024 8:01 AM Madison Bach Feeling tired or having lázaro le energy Not at all 07/27/2024 8:01 AM Madison Bach Poor appetite or overeating Not at all 07/27/2024 8: 01 AM Madison Bach Feeling bad about yourself - or that you are a failure or have let yourself or your family down Not at all 07/27/2024 8:01 AM Madison Bach Trouble concentrating on thi ngs, such as reading the newspaper or watching television Not at all 07/27/2024 8:01 AM Madison Bach Moving or speaking so slowly that other people could have noticed? Or the opposite - being so fidgety or restless that you have been moving around a lot more than usual. Not at all 07/27/2024 8:01 AM Madison Bach Thoughts that you would be b caridad off or hurting yourself in some way Not at all 07/27/2024 8:01 AM Madison Bach Patient Health Questionnaire -9 Score 0 07/27/2024 8:01 AM Madison Bach * Calculated C-SSRS Risk Score (Lifetime/Recent) Answer Date of Assessment Author No Risk Indicated 07/27/2024 7:59 AM Madison Bach * If you checked off any problems on this questionnaire so far, Question Answer Date of Assessment Author How difficult have these problems made it for you to do your work, take care of things at home, or get along with other people? Not difficult at all 07/27/2024 8:01 AM Madison Bach * Question Answer Date of Assessment Author 1. Wish to be (Past 1 Month) No 7:59 AM Madison Bach 2. Non-Specific Active Suici gabi Thoughts (Past 1 Month) No 07/27/2024 7:59 AM Jordan Bach 6. Suicidal Behavior (Lifetime) No 7:59 AM Madison Bach documented as of this encounter Plan of Treatment Upcoming Encounters Date Type Department Care Team (Late st Contact Info) Description 11/02/2024 1:40 PM EDT Office Visit [facility] [address] [place] [address] Maricruz Barrera APRN [address] [place] [address] 01/03/2025 9:00 AM EDT Office Visit [facility] [address] [place] [address] Varinder Youssef [facility] [place] [address] documented as of this encounter Visit Diagnoses Not on filedocumented in this encounter Additional Health Concerns Assessment Noted Time PHQ-9 Depression Total Score: 0 07/28/19 25 8:01 AM EDT A fall risk assessment has been complete d for the patient 05/20/2022 7:45 AM EST A Body Mass Index follow-up plan has been documented for the patient 07/27/2024 8:56 AM EDT documented as of this encounter Care Teams Internet Marketing Specialist Relationship Specialty Start Date End Date Maricruz Barrera APRN [address] [place] [address] PCP - General Family Medicine 05/20/22 documented as of this encounter
--- OUTSIDE RECORDS SUMMARY | 2024-10-19 13:36 | XMS_ITS | Encounter Summary ---
Author Organization [facility] Address [address] [place] [address] Care Team Providers Care Director Of Leadership Development Name Role Phone Lina Galvan INTERFACE CONTROL OFFICER Primary Care Provider [phone] Maricruz Barrera INTERFACE CONTROL OFFICER Primary Care Provider Encounter Details Date Type Department Care Team (Late st Contact Info) Description 05/09/2020 Abstract DSB [facility] [address] [place] [address] Dental, Provider, DDS [address] [place] [address] Social History Tobacco Use Types Packs/Day Years Used Date Smoking Tobacco: Never Alcohol Use Standard Drinks/Week Comments Yes 0 (1 standard drink = 0.6 oz pure alcohol) Alcoholic Drinks/day: Occasional alcohol use Comments Unknown Sex and Gender Information Value Date Recorded Sex Assigned at Female 01/23/2021 11:25 AM EDT Legal Sex Female 8:31 PM EDT Gender Identity Female 01/23/2021 11:25 AM EDT Sexual Orientation Not on file documented as of this encounter Plan of Treatment Upcoming Encounters Date Type Department Care Team (Late st Contact Info) Description 11/02/2024 1:40 PM EDT Office Visit [facility] [address] [place] [address] Maricruz Barrera, CINDI [address] [place] [address] 01/03/2025 9:00 AM EDT Office Visit [facility] [address] [place] [address] Varinder Youssef [place] [address] documented as of this encounter Visit Diagnoses Not on filedocumented in this encounter Care Teams Director Of Leadership Development Relationship Specialty Start Date End Date Lina Galvan APRN [address] [place] [address] PCP - General 08/03/20 08/27/21 Maricruz Barrera APRN [address] [place] [address] PCP - General Family Medicine 05/20/22 documented as of this encounter
--- OUTSIDE RECORDS SUMMARY | 2024-10-19 13:36 | XMS_ITS | Encounter Summary ---
Author Organization [facility] Address [address] [place] [address] Care Team Providers Care Cyber Crime Investigator Name Role Phone Maricruz Barrera APRN Primary Care Provider [phone] Encounter Details Date Type Department Care Team (Late st Contact Info) Description 08/05/2024 Results Follow-Up [facility] [address] [place] [address] Maricruz Barrera APRN [address] [place] [address] Social History Tobacco Use Types [...] any time in the past 12 m [facility], were you homeless or living in a penitentiary (including now)? No 07/26/2024 Utilities Answer Date [...] Description 11/02/2024 1:40 PM EDT Office Visit [facility] [place] [address] Maricruz Barrera, LOGGING SPECIALIST [address] [place] [address] 01/03/2025 9:00 AM EDT Office Visit [facility] [address] [place] [address] Varinder Yousse[place] [address] documented as of this encounter Visit Diagnoses [...] documented as of this encounter Care Teams Cyber Crime Investigator Relationship Specialty Start Date End Date Maricruz Barrera APRN [address] [place] [address] PCP - General Family Medicine 05/20/22 documented as of this encounter
--- OUTSIDE RECORDS SUMMARY | 2024-10-19 13:36 | XMS_ITS | Encounter Summary ---
Author Organization [facility] Address [address] [place] [address] Care Team Providers Care Fence Installer Foreman Name Role Phone Lina Galvan SEWING MACHINE OPERATOR SEMIAUTOMATIC Primary Care Provider [phone] Maricruz Barrera SEWING MACHINE OPERATOR SEMIAUTOMATIC Primary Care Provider [phone] Encounter Details Date Type Department Care Team (Late st Contact Info) Description 05/09/2020 Abstract DSB [facility] [address] [place] [address] Dental, Provider, DDS [address] [place] [address] Social History Tobacco Use Types Packs/Day [...] Description 11/02/2024 1:40 PM EDT Office Visit [facility] [address] [place] [address] Maricruz Barrera, CINDI [address] [place] [address] 01/03/2025 9:00 AM EDT Office Visit [facility] [address] [place] [address] Varinder [place]ousse[place] [address] documented as of this encounter Visit Diagnoses Not on filedocumented in this encounter Care Teams Fence Installer Foreman Relationship Specialty Start Date End Date Lina Galvan APRN [address] [place] [address] PCP - General 08/03/20 08/27/21 Maricruz Barrera APRN [address] [place] [address] PCP - General Family Medicine 05/20/22 documented as of this encounter
--- OUTSIDE RECORDS SUMMARY | 2024-10-19 13:36 | XMS_ITS | Encounter Summary ---
Author Organization [facility] Address [address] [place] [address] Care Team Providers Care Cloth Mender Name Role Phone Lina Galvan PASSENGER CAR INSPECTOR Primary Care Provider Maricruz Barrera PASSENGER CAR INSPECTOR Primary Care Provider [phone] Encounter Details Date Type Department Care Team (Late st Contact Info) Description 05/09/2020 Abstract DSB [facility] [address] [place] [address] Dental, Provider, DDS [address] [place] [address] Social History Tobacco Use Types Packs/Day [...] Description 11/02/2024 1:40 PM EDT Office Visit [facility] [address] [place] [address] Maricruz Barrera, CINDI [address] [place] [address] 01/03/2025 9:00 AM EDT Office Visit [facility] [address] [place] [address] Varinder Youssef [place] [address] documented as of this encounter Visit Diagnoses Not on filedocumented in this encounter Care Teams Cloth Mender Relationship Specialty Start Date End Date Lina Galvan APRN [address] [place] [address] PCP - General 08/03/20 08/27/21 Maricruz Barrera APRN [address] [place] [address] PCP - General Family Medicine 05/20/22 documented as of this encounter
--- NOTE | 2024-10-19 13:37 | XR_ITS ---
FINAL REPORT CLINICAL HISTORY: FALL FROM LADDER 1 MONTH AGO FINDINGS: A single view of the pelvis was obtained. There is no prior exam for comparison. There is no acute fracture or dislocation. The visualized joint spaces are normally aligned. Soft tissues are unremarkable. IMPRESSION: No acute bony abnormality. Reviewed, Interpreted and Dictated by Lee Ann Blackmon MD Transcribed by Elzbieta Vaughn Authenticated and [facility]
--- NOTE | 2024-10-19 13:37 | XR_ITS ---
FINAL REPORT CLINICAL HISTORY: FALL FROM LADDER 1 MONTH AGO FINDINGS: 3 views of the sacrum and coccyx were obtained. There is no prior exam for comparison. There is no acute fracture of the sacrum or coccyx. The sacrococcygeal articulation appears within normal limits. There is mild degenerative disease at the SI joints bilaterally. There is no acute soft tissue abnormality. IMPRESSION: No acute abnormality of the sacrum or coccyx. If pain persists, consider CT. Reviewed, Interpreted and Dictated by Lee Ann Blackmon MD Transcribed by Elzbieta Vaughn Authenticated and [facility]
--- NOTE | 2024-10-19 13:37 | XR_ITS ---
FINAL REPORT CLINICAL HISTORY: FALL FROM LADDER 1 MONTH AGO FINDINGS: 3 views of the lumbar spine were obtained. There is no prior exam for comparison. There is no acute fracture or malalignment. Vertebral body height is preserved. Disc space height is preserved. No acute paraspinal abnormality. IMPRESSION: No acute osseous abnormality of the lumbar spine. Reviewed, Interpreted and Dictated by Lee Ann Blackmon MD Transcribed by Elzbieta Vaughn Authenticated and [facility]
== END 2024-10-19 23:59 | disposition home or self-care (01) ==
LOC: RAD 13:35
PROVIDERS: PCP Nurse Practitioner Family; Visit Provider Student in an Organized Health Care Education/Training Program
DX: Z04.3 Encounter for examination and observation following other accident (principal); W11.XXXA Fall on and from ladder, initial encounter
CPT/HCPCS: 72100; 72170; 72220